=== PATIENT | female | born 1960 | race Caucasian/White ===

== ENCOUNTER → 2016-11-17 | Outpatient (CLI) | payer OTHER ==
--- NOTE | 2016-11-17 11:38 | MM ---
Reason for exam: screening (asymptomatic). Last mammogram was performed 1 year and 5 months ago. History: Patient is postmenopausal and has history of other cancer at age 40. Family history of breast cancer in mother at age 75. Took estrogen for 2 months. Physical Findings: A clinical breast exam by your physician is recommended on an annual basis and results should be correlated with mammographic findings. MG Screening Mammo w CAD Bilateral CC and MLO view(s) were taken. Prior study comparison: June 13, 2015, bilateral MG screening mammo w CAD. January 24, 2014, mammogram, performed at [facility], [place], [facility]. March 19, 2012, mammogram, performed at [facility], [place], [facility]. There are scattered fibroglandular densities. Finding: There are typically benign round calcifications in both breasts. There is a chronic nodularity in the left breast. There is no discrete abnormality. ASSESSMENT: Benign, BI-RAD 2 RECOMMENDATION: Routine screening mammogram of both breasts in 1 year.
== END | disposition home or self-care (01) ==
LOC: RADMAMWWP 07:13
PROVIDERS: ATTEND Obstetrics & Gynecology
DX: Z12.31 Encounter for screening mammogram for malignant neoplasm of breast (principal); Z80.3 Family history of malignant neoplasm of breast

== ENCOUNTER → 2018-02-22 | Outpatient (CLI) | payer OTHER ==
--- NOTE | 2018-02-28 10:41 | MM ---
Reason for exam: screening (asymptomatic). Last mammogram was performed 1 year and 3 months ago. History: Patient is postmenopausal and has history of other cancer at age 40. Family history of breast cancer in mother at age 75. Taking estrogen for 1 year 2 months. MG Screening Mammo w CAD Bilateral CC and MLO view(s) were taken. Prior study comparison: November 17, 2016, bilateral MG screening mammo w CAD. June 13, 2015, bilateral MG screening mammo w CAD. There are scattered fibroglandular densities. There are bilateral breast calcifications. Chronic nodularity in the left breast. ASSESSMENT: Benign, BI-RAD 2 RECOMMENDATION: Routine screening mammogram of both breasts in 1 year.
== END | disposition home or self-care (01) ==
LOC: RADMAMWWP 10:44
PROVIDERS: ATTEND Obstetrics & Gynecology
DX: Z12.31 Encounter for screening mammogram for malignant neoplasm of breast (principal)
CPT/HCPCS: 77067

== ENCOUNTER → 2019-07-27 | Outpatient (CLI) | payer OTHER ==
--- NOTE | 2019-07-28 08:07 | MM ---
Reason for exam: screening (asymptomatic). Last mammogram was performed 1 year and 5 months ago. History: Patient is postmenopausal and has history of other cancer at age 40. Family history of breast cancer in mother at age 75 and breast cancer in sister at age 63. Taking estrogen for 1 year 2 months. Physical Findings: A clinical breast exam by your physician is recommended on an annual basis and results should be correlated with mammographic findings. MG Screening Mammo w CAD Bilateral CC, MLO, and XCCL view(s) were taken. Prior study comparison: February 22, 2018, bilateral MG screening mammo w CAD. November 17, 2016, bilateral MG screening mammo w CAD. There are scattered fibroglandular densities. Benign appearing bilateral calcifications. There is chronic nodularity in the left breast. ASSESSMENT: Benign, BI-RAD 2 RECOMMENDATION: Routine screening mammogram of both breasts in 1 year.
== END | disposition home or self-care (01) ==
LOC: RADMAMWWP 07:11
PROVIDERS: ATTEND Obstetrics & Gynecology
DX: Z12.31 Encounter for screening mammogram for malignant neoplasm of breast (principal); Z80.3 Family history of malignant neoplasm of breast
CPT/HCPCS: 77067

== ENCOUNTER → 2021-02-01 | Outpatient (CLI) | payer OTHER ==
--- NOTE | 2021-02-05 09:02 | MM ---
Reason for exam: screening (asymptomatic). Last mammogram was performed 1 year and 6 months ago. History: Patient is postmenopausal and has history of other cancer at age 40. Family history of breast cancer in mother at age 75 and breast cancer in sister at age 63. Took estrogen for 1 year 2 months. Physical Findings: A clinical breast exam by your physician is recommended on an annual basis and results should be correlated with mammographic findings. MG Screening Mammo w CAD Bilateral CC and MLO view(s) were taken. Prior study comparison: July 27, 2019, bilateral MG screening mammo w CAD. February 22, 2018, bilateral MG screening mammo w CAD. There are scattered fibroglandular densities. There is chronic nodularity in the left breast. Scattered benign round and oil cyst calcifications. No significant changes when compared with prior studies. ASSESSMENT: Negative, BI-RAD 1 RECOMMENDATION: Routine screening mammogram of both breasts in 1 year.
== END | disposition home or self-care (01) ==
LOC: RADMAMWWP 10:57
PROVIDERS: ATTEND Obstetrics & Gynecology
DX: Z12.31 Encounter for screening mammogram for malignant neoplasm of breast (principal); Z80.3 Family history of malignant neoplasm of breast; Z78.0 Asymptomatic menopausal state
CPT/HCPCS: 77067

== ENCOUNTER → 2022-02-12 | Outpatient (CLI) | payer OTHER ==
--- NOTE | 2022-02-13 08:32 | MM ---
Reason for Exam: Screening (asymptomatic). Last screening mammogram was performed 12 month(s) ago. Patient History: Menarche at age 10. First Full-Term at age 28. Late child-bearing (after 30). Postmenopausal. Other cancer, age 40. Estrogen for 1 year, 2 months. Sister had breast cancer, age 63. Mother had breast cancer, age 75. Risk Values: Kathya 5 year model risk: 4.6%. NCI Lifetime model risk: 18.6%. Prior Study Comparison: 02/22/2018 Bilateral Screening Mammogram, [facility]. 07/27/2019 Bilateral Screening Mammogram, [facility]. 02/01/2021 Bilateral Screening Mammogram, [facility]. Tissue Density: The breast tissue is almost entirely fat. Findings: Analyzed By CAD. There is no suspicious group of microcalcifications or new suspicious mass in either breast. Overall Assessment: Negative, BI-RAD 1 Management: Screening Mammogram of both breasts in 1 year. A clinical breast exam by your physician is recommended on an annual basis and results should be correlated with mammographic findings. [facility] will attempt to contact patient to return for supplemental views and ultrasound if indicated. Electronically signed and approved by: Francisco Javier Coleman DO
== END | disposition home or self-care (01) ==
LOC: RADMAMWWP 07:50
PROVIDERS: ATTEND Obstetrics & Gynecology
DX: Z12.31 Encounter for screening mammogram for malignant neoplasm of breast (principal); Z78.0 Asymptomatic menopausal state; Z80.3 Family history of malignant neoplasm of breast
CPT/HCPCS: 77067

== ENCOUNTER → 2023-07-31 | Outpatient (CLI) | payer OTHER ==
--- NOTE | 2023-08-05 09:30 | MM ---
Reason for Exam: Screening (asymptomatic). Last mammogram was performed 1 year(s) and 6 month(s) ago. Patient History: Menarche at age 10. First Full-Term at age 28. Late child-bearing (after 28). Postmenopausal. Patient has history of breast feeding. Other cancer, age 40. Patient used Estrogen for 1 year. Sister had breast cancer, age 63. Mother had breast cancer, age 75. Risk Values: Akthya 5 year model risk: 4.8%. NCI Lifetime model risk: 18.0%. Prior Study Comparison: 06/13/2015 Bilateral Screening Mammogram, [facility]. 11/17/2016 Bilateral Screening Mammogram, [facility]. 02/22/2018 Bilateral Screening Mammogram, [facility]. 07/27/2019 Bilateral Screening Mammogram, [facility]. 02/01/2021 Bilateral Screening Mammogram, [facility]. 02/12/2022 Bilateral MG screening mammo w CAD, [facility]. Tissue Density: There are scattered areas of fibroglandular density. Findings: Analyzed By CAD. There is no suspicious group of microcalcifications or new suspicious mass in either breast. Overall Assessment: Benign, BI-RAD 2 Management: Screening Mammogram of both breasts in 1 year. . Patient should continue monthly self-breast exams. A clinical breast exam by your physician is recommended on an annual basis. This exam should not preclude additional follow-up of suspicious palpable abnormalities. Note on Kathya scores and lifetime risk: 1. A Kathya score greater than 3% is considered moderate risk. If this is the case, consider specialist referral to assess eligibility for a risk reducing agent. 2. If overall lifetime risk for the development of breast cancer is 20% or higher, the patient may qualify for future screening with alternating mammogram and breast MRI. Electronically signed and approved by: Ramón Parada M.D. Radiolog[facility]
== END | disposition home or self-care (01) ==
LOC: RADMAMWWP 07:00
PROVIDERS: ATTEND Obstetrics & Gynecology
DX: Z12.31 Encounter for screening mammogram for malignant neoplasm of breast (principal); Z80.3 Family history of malignant neoplasm of breast; Z78.0 Asymptomatic menopausal state
CPT/HCPCS: 77067